=== PATIENT | male | born 1980 | race African-American/Black ===

== ENCOUNTER 2016-09-15 13:44 | Emergency (ER) | payer BC ==
--- NOTE | ~2016-09-15 | US85 ---
[facility] A Service of [facility] RADIOLOGY TEXT RESULTS PATIENT: MAIRA SALMERON LOCATION: CFTX : 78 UNIT #: [id number] AGE: [address]: Tova Snyder APRN SEX: M ORDER DR: [id number] [facility] [address] [place], [place] [address] [id number] MR#: [id number] Acc #: [id number] NAME: MAIRA SALMERON. : 1980 SEX: M STUDY DATE/TIME: 09/15/2016 14:40 UNIT: [facility] ROOM: STUDY DESCRIPTION: [facility] Veins [employer] or [employer] Stdy Attending Physician: Tova Snyder A.P.R.N. Ordering Physician: Ed Doctor [id number] [facility] Primary Care Physician: Primary Care Physician No MEDICAL IMAGING REPORT This report is preliminary unless electronic signature is present EXAM Right leg vein Doppler, 09/15 INDICATION Right leg pain for the last 2 weeks. FINDINGS Goldstein-scale, color flow, and spectral Doppler waveform analysis was performed of the right lower extremity venous system. All of the venous structures demonstrate normal compressibility and color flow. No superficial or deep venous thrombosis is seen. Note is made of a small Davis's cyst measuring 1.8 x 0.8 x 1.1 cm. IMPRESSION No superficial or deep venous thrombosis in the right leg. There is a small Davis's cyst. Dictated by... Lorne Argueta Jr., M.D. THIS IS AN ELECTRONICALLY VERIFIED REPORT Lorne Argueta Jr., M.D. at 09/15/2016 5:00 PM JS/shen TD: 09/15/2016 16:11 JOB #: [id number] MEDICAL IMAGING REPORT Page 1 of 1 COPY
[~2016-09-15 13:44] MED LIST: NO MEDICATIONS
== END 2016-09-15 15:33 | disposition home or self-care (01) ==
LOC: CFTX 13:44 → CED 13:44 → CFTX 14:23
DX: M71.21 Synovial cyst of popliteal space [Baker], right knee (principal); F17.210 Nicotine dependence, cigarettes, uncomplicated
CPT/HCPCS: 93971; 99283